=== PATIENT | male | born 1970 | race Caucasian/White ===

== ENCOUNTER → 2020-05-28 | Outpatient (CLI) | payer BC | END | disposition home or self-care (01) | LOC: LABWHC1 07:08 | PROVIDERS: ATTEND Surgery | DX: U07.1 COVID-19 (principal) | CPT/HCPCS: U0003; C9803 ==

== ENCOUNTER → 2020-05-30 | Day surgery (SDC) | payer BC ==
[2020-05-29 08:44] VITALS: BMI 27.2
[~2020-05-30] MED LIST: LACTATED RINGERS 1,000 ML IV SCH; LIDOCAINE 1% (10MG/ML) FOR IV START INTRADERMA ONE; LIDOCAINE 1% (10MG/ML) FOR IV START INTRADERMA PRN; PROPOFOL 10 MG/ML 20 ML VIAL IV ONE
[2020-05-30 07:38] VITALS: RESP 16; TEMP 97.6
--- NOTE | 2020-05-30 08:49 | P.OP ---
Date of Procedure: 05/30/20 Preoperative Diagnosis: Screening Postoperative Diagnosis: Rectal polyp Diverticulosis Procedure(s) Performed: colonoscopy with polypectomy Surgeon: Gregorio Wynn Pathology: other (Rectal polyp) Condition: stable Disposition: same day Indications for Procedure: Patient presents today for screening colonoscopy. His last colonoscopy was 10 years ago. He does have a family history of cancer with his grandfather having colon cancer and his father having pancreatic cancer. He was excellent the risks, benefits and alternatives to the procedure and did provide consent prior to attending the endoscopy suite. Operative Findings: Diverticulosis Rectal polyp Description of Procedure: The patient was brought into the endoscopy suite and placed in left lateral decubitus position. Adequate sedation was achieved using conscious sedation. A digital rectal exam was performed and mild internal hemorrhoids were palpated. An endoscope was then placed in the rectum and advanced to the cecum as identified by landmarks including the appendiceal orifice and the ileocecal valve. The prep was fair. The colonoscope was then slowly withdrawn, examining for any mucosal abnormalities. The cecum, ascending, transverse, descending and sigmoid colon were visualized adequately. Diverticulosis was noted scattered throughout the descending and sigmoid colon. There were no obvious large neoplastic lesions. Only one polyp was noticed and this was in the rectum. This was removed with hot snare polypectomy. Retroflexion was performed in the rectum and mild internal hemorrhoids were visible. Excess air was removed, the colonoscope withdrawn and the procedure terminated. The patient was then transferred to the recovery unit in stable condition. Repeat colonoscopy should be performed in 5 years due to finding a polyp and family history of cancer.
[2020-05-30 09:08] VITALS: BP 125/73; PULSE 50
== END | disposition home or self-care (01) ==
LOC: ORWHC2ENDO 07:21
PROVIDERS: ATTEND Surgery
DX: Z12.11 Encounter for screening for malignant neoplasm of colon (principal); D12.8 Benign neoplasm of rectum; K64.8 Other hemorrhoids; K57.30 Diverticulosis of large intestine without perforation or abscess without bleeding; K08.89 Other specified disorders of teeth and supporting structures; Z88.0 Allergy status to penicillin; Z98.890 Other specified postprocedural states; Z87.19 Personal history of other diseases of the digestive system; Z80.0 Family history of malignant neoplasm of digestive organs
CPT/HCPCS: 88305; 45385; J2704

== ENCOUNTER 2021-01-09 07:18 | Day surgery (SDC) | payer BC ==
[~2021-01-09 07:18] MED LIST changes: +ACETAMINOPHEN TAB 500 MG TAB PO PRN; +DEXAMETHASONE SOD PHOSPHATE 4 MG/ML 1 ML VIAL IV ONE; +HEPARIN SODIUM,PORCINE 5,000 UNIT/ML 1 ML VIAL SQ PRN; +HYDROmorphone 0.5 MG/0.5 ML SYRINGE IVP PRN; -LIDOCAINE 1% (10MG/ML) FOR IV START INTRADERMA ONE; +ONDANSETRON 4 MG/2 ML VIAL IVP ONE; -PROPOFOL 10 MG/ML 20 ML VIAL IV ONE
[2021-01-09 07:52] VITALS: RESP 16
--- NOTE | 2021-01-09 07:53 | P.GSHP ---
History of Present Illness H&P Date: 01/09/21 Chief Complaint: Right inguinal hernia 50-year-old male seen in the office in October. Complains of bulge in the right groin for the last 1 year. He lost 80 pounds intentionally and says it was easier to see the hernia following that. Denies a pressure-like discomfort at times. History of previous umbilical hernia repair with mesh. No previous inguinal hernia repair. Past Medical History Additional Past Medical History / Comment(s): HERNIAS History of Any Multi-Drug Resistant Organisms: None Reported Past Surgical History: Orthopedic Surgery Additional Past Surgical History / Comment(s): LEFT KNEE ARTHO. UMBILICAL HERNIA. Past Anesthesia/Blood Transfusion Reactions: No Reported Reaction Past Psychological History: No Psychological Hx Reported Smoking Status: Former smoker Past Alcohol Use History: Rare Additional Past Alcohol Use History / Comment(s): QUIT SMOKING AROUND 2003, 1 PPD. Past Drug Use History: None Reported Additional Drug Use History / Comment(s): CBD OIL - Past Family History Mother Family Medical History: No Reported History Father Family Medical History: Cancer Additional Family Medical History / Comment(s): PANCREATIC CANCER. Medications and Allergies Home Medications Medication Instructions Recorded Confirmed Type Cannabidiol (Cbd) [Epidiolex] 1 applic PO HS 05/29/20 01/06/21 History Multivitamins, Thera [Multivitamin 1 tab PO DAILY 01/06/21 01/06/21 History (formulary)] Whe[place]-3 Fatty Acids/Fish Oil [Fish 1 cap PO DAILY 01/06/21 01/06/21 History Oil 1,000 mg Softgel] Allergies Allergy/AdvReac Type Severity Reaction Status Date / Time Penicillins Allergy Unknown Verified 01/09/21 07:49 Childhood Surgical - Exam Vital Signs Temp Pulse Resp BP Pulse Ox 98.3 F 49 L 16 144/72 100 01/09/21 07:51 01/09/21 07:51 01/09/21 07:51 01/09/21 07:51 01/09/21 07:51 Abdomen: Soft, nontender, nondistended, reducible right inguinal hernia slightly superior to the expected location of the internal inguinal ring, no palpable hernia on left Assessment and Plan (1) Right inguinal hernia Narrative/Plan: Will proceed with laparoscopic da Ambrose assisted repair right inguinal hernia with mesh, possible open, possible bilateral. Risks of bleeding, infection, recurrence, bladder and bowel injury, numbness, nerve injury, conversion to an open procedure were discussed with the patient. The patient understands and wishes to proceed. Current Visit: Yes Status: Acute Code(s): K40.90 - UNIL INGUINAL HERNIA, W/O OBST OR GANGR, NOT SPCF RECUR SNOMED Code(s): 824848896
[2021-01-09] MEDS ORDERED: fentaNYL (PF) 50 MCG/ML 2 ML AMP IV ONE (08:23)
[2021-01-09] MEDS ORDERED: MIDAZOLAM 2 MG/2 ML VIAL IV ONE (08:23)
--- NOTE | 2021-01-09 08:42 | P.ANPRN ---
Procedure Note - Anesthesia - Nerve Block Performed Bilateral Erector Spinae Single Time Out Performed: Yes (823) Date of Procedure: 01/09/21 Procedure Start Time: 08:24 Procedure Stop Time: 08:34 Indication: Acute Post-Operative Pain, Analgesia, Dx/Pain Location, Requested by Surgeon Specifically requested for management of pain by DrAndreia: Basim Gastelum Sedation Type: Sedate with meaningful contact maintained Preparation: Sterile Prep Position: Prone Needle Types: Pajunk Needle Gauge: 20 Ultrasound used to visualize needle placement: Yes Ultrasound used to observe medication spread: Yes Injectate: 0.5% Ropivacaine (see comment for volume) (30 mL) Blood Aspirated: No Pain Paresthesia on Injection Noted: No Resistance on Injection: Normal Image Stored and Saved: Yes Events: Uneventful and Well Tolerated
[2021-01-09] MEDS ORDERED: KETOROLAC 15 MG/ML 1 ML VIAL ONE (09:11)
[2021-01-09] MEDS ORDERED: GLYCOPYRROLATE 0.2 MG/ML 2 ML VIAL ONE (09:11)
[2021-01-09] MEDS ORDERED: NEOSTIGMINE 1 MG/ML 10 ML VIAL ONE (09:11)
[2021-01-09] MEDS ORDERED: MIDAZOLAM 2 MG/2 ML VIAL ONE (09:11)
[2021-01-09] MEDS ORDERED: fentaNYL (PF) 50 MCG/ML 2 ML AMP ONE (09:11)
[2021-01-09] MEDS ORDERED: LIDOCAINE 1% INJ 10MG/ML (20 ML MDV) ONE (09:11)
[2021-01-09] MEDS ORDERED: PROPOFOL 10 MG/ML 20 ML VIAL IV ONE (09:11)
[2021-01-09] MEDS ORDERED: ROCURONIUM 10 MG/ML (5 ML VIAL) IV ONE (09:11)
[2021-01-09] MEDS ORDERED: ROPIVACAINE 5 MG/ML 30 ML VIAL ONE (09:11)
[2021-01-09] MEDS ORDERED: BUPIVACAINE-EPI 0.5%-1:200,000 10 ML VIAL SQ ONE ×2 (09:30)
[2021-01-09] MEDS ORDERED: LACTATED RINGERS 1,000 ML IV ONE (10:04)
[2021-01-09] MEDS ORDERED: ONDANSETRON 4 MG/2 ML VIAL IVP PRN (10:38)
[2021-01-09 10:39] VITALS: TEMP 97.1
--- NOTE | 2021-01-09 10:42 | P.OP ---
Date of Procedure: 01/09/21 Procedure(s) Performed: PREOPERATIVE DIAGNOSIS: Right inguinal hernia POSTOPERATIVE DIAGNOSIS: Same PROCEDURE: Laparoscopic repair right inguinal hernia with the da Ambrose robot assistance with mesh SURGEON: Nirav EBL: Minimal ANESTHESIA: General COMPLICATIONS: None OPERATIVE PROCEDURE: Patient was placed in the operating table in the supine position. The patient was placed under general anesthesia. The abdomen was prepped and draped in usual sterile fashion. Entrance into the perineal cavity occurred through a 5 mm optical trocar in the left upper quadrant. Full insufflation took place. An 8 mm trocar was placed at the umbilicus as well as an 8 mm trocar in the right upper quadrant. The initial 5 was switched to an 8 mm trocar at that time. The robotic arms were then brought in and docked into place. The fenestrated bipolar was used in the left arm and the laparoscopic raj was utilized in the right arm. A 30 8 mm scope was used in the up position. The peritoneal cavity was inspected. The patient had a small to medium sized indirect right inguinal hernia. No hernia was seen on the left- hand side. There were no adhesions from the previous umbilical hernia repair. The peritoneum was incised in a horizontal fashion cephalad to the internal inguinal ring. Following that careful dissection of the preperitoneal space took place. This took place using both electrocautery, sharp dissection but primarily blunt dissection. Visualization of the pubic tubercle and Rohith's l igament took place medially. Full dissection took place laterally as well. The hernia sac was fully dissected. Once we had adequate space the Bard 3-D mid XL mesh was advanced into the preperitoneal space and flattened out appropriately to cover all potential hernia sites. No sutures were used. The peritoneal defect was then closed using a locking 2-0 VLok suture. A 3-0 Vicryl suture was used to tack the hernia sac anteriorly and superiorly. The pneumoperitoneum was then evacuated. The skin of all 3 sites was closed using a 4-0 Monocryl stitch. Skin glue was then applied. DISPOSITION: Stable to recovery room
[2021-01-09] MEDS ORDERED: TAMSULOSIN 0.4 MG CAP.ER.24H PO STA (11:07)
[2021-01-09 11:45] VITALS: BP 119/72; PULSE 47
[2021-01-09] MEDS ORDERED: ACETAMINOPHEN TAB 325 MG TAB PO SCH (12:00)
[2021-01-09] MEDS ORDERED: IBUPROFEN 600 MG TAB PO SCH (13:38)
== END 2021-01-09 12:04 | disposition home or self-care (01) ==
LOC: OR 07:18
PROVIDERS: ATTEND Surgery
DX: K40.90 Unilateral inguinal hernia, without obstruction or gangrene, not specified as recurrent (principal); Z87.19 Personal history of other diseases of the digestive system; Z98.890 Other specified postprocedural states; Z87.891 Personal history of nicotine dependence; Z88.0 Allergy status to penicillin; Z80.0 Family history of malignant neoplasm of digestive organs
CPT/HCPCS: 49650; S2900; 64999; 76942

== ENCOUNTER → 2022-04-03 | Outpatient (CLI) | payer BC ==
[2022-04-03 11:23] LABS: HCT 46.6 % (39.6-50.0); HGB 15.1 g/dL (13.0-17.0); MCH 30.6 pg (27.0-32.0); MCHC 32.4 g/dL (32.0-37.0); MCV 94.5 fL (80.0-97.0); Mean Platelet Volume 9.5 fL (9.5-12.2); NRBC Per 100 WBC 0 /100 WBCS (0.0-0.0); Platelet Count 245 X 10*3/uL (140-440); RBC 4.93 X 10*6/uL (4.40-5.60); WBC 5.73 X 10*3/uL (4.50-10.00)
[2022-04-03 11:43] LABS: African American GFR (CKD) 104.4 (60.0-200.0); Albumin 4.4 g/dL (3.8-4.9); Albumin/Globulin Ratio 2.41 (1.60-3.17); Anion Gap 8.1 mmol/L (10.00-18.00); BUN/Creat Ratio 24.74 Ratio (12.00-20.00); Blood Urea Nitrogen 23.7 mg/dL (9.0-27.0); Calcium 9.3 mg/dL (8.7-10.3); Carbon Dioxide 26.2 mmol/L (20.0-27.5); Globulin 1.8 g/dL (1.6-3.3); HDL Cholesterol 64.9 mg/dL (40.00-60.00); Non-African American GFR(CKD) 90.1 (60.0-200.0); Potassium 4.6 mmol/L (3.5-5.5); Prostate Specific Antigen 0.7 ng/mL (0.00-3.50); Total Bilirubin 0.9 mg/dL (0.30-1.20); Total Protein 6.2 g/dL (6.2-8.2)
[2022-04-03 12:05] LABS: Chol/HDL Ratio 2.63 Ratio; LDL Cholesterol,Direct Reflex 93.3 mg/dL (0.00-129.00)
== END | disposition home or self-care (01) ==
LOC: LABWHC1 08:15
PROVIDERS: ATTEND Family Medicine
DX: Z00.01 Encounter for general adult medical examination with abnormal findings (principal)
CPT/HCPCS: 36415; 80053; 80061; 83721; 84153; 85027